=== PATIENT | female | born 1965 | race Caucasian/White ===

== ENCOUNTER → 2019-02-11 | Outpatient (CLI) | payer BC ==
--- NOTE | 2019-02-11 09:52 | KCIC ---
EXAM: Thyroid sonogram. HISTORY: Hypothyroidism. TECHNIQUE: Sonographic imaging of the thyroid was performed. COMPARISON: None. FINDINGS: The right thyroid lobe measures 3.3 x 1.3 x 0.7 cm. The left thyroid lobe measures 2.8 x 0.8 x 0.5 cm. The thyroid isthmus measures 1.9 mm. The thyroid parenchyma is diffusely heterogeneous. No nodule or cyst is seen. IMPRESSION: Mildly heterogeneous and relatively small thyroid. This can be seen as a sequela of prior thyroiditis. No thyroid nodule is seen. Electronically signed by: Kaela Dial MD (02/11/2019 9:49 AM) [place] [id number]
== END | disposition home or self-care (01) ==
LOC: KCIC US 08:58
PROVIDERS: ATTEND Family Medicine
DX: E03.9 Hypothyroidism, unspecified (principal)
CPT/HCPCS: 76536

== ENCOUNTER → 2019-07-20 | Outpatient (CLI) | payer BC ==
--- NOTE | 2019-07-30 09:10 | KCIC ---
Bilateral digital screening mammograms with 3-D tomosynthesis: Reason for examination: Routine screening. Comparison is made to previous study dated 11/04/2014. Bilateral mammograms in CC and oblique projections were obtained with 2-D imaging and 3-D tomosynthesis imaging on a Siemens Inspiration unit and reviewed on the workstation. Interpretation was made with the benefit of CAD. The skin and nipples show no abnormalities. No abnormal axillary lymph nodes are seen. The breast parenchyma shows scattered fatty and fibroglandular density. (Breast density: Category B.) There are no dominant masses, suspicious calcifications or architectural distortion. Impression: No evidence of malignancy. Recommend routine screening. BI-RAD Category 1: Negative. "Our facility is accredited by the [employer] Mammography Program." This patient's information has been entered into a reminder system for the patient to be notified with the results of her examination and a target date for the next mammogram. Electronically signed by: Rima Sanz MD (07/30/2019 9:07 AM) [id number]
== END | disposition home or self-care (01) ==
LOC: KCIC MAMMO 15:47
PROVIDERS: ATTEND Nurse Practitioner Family
DX: Z12.31 Encounter for screening mammogram for malignant neoplasm of breast (principal)
CPT/HCPCS: 77063; 77067